=== PATIENT | female | born 1970 | race Caucasian/White ===

== ENCOUNTER → 2019-02-27 | Outpatient (CLI) | payer OTHER ==
--- NOTE | 2019-02-27 15:14 | RAD ---
EXAM: Standing AP knees bilaterally DATE: 02/27/2019 INDICATIONS: DJD, bilateral knee pain COMPARISON: No prior FINDINGS/ IMPRESSION: Standing AP view of the right knee shows severe osteoarthritis with eccentric joint space narrowing and marginal proliferative changes, medial compartment predominance. Mild varus angulation. Negative acute fracture. Standing AP view of the left knee shows severe osteoarthritis with eccentric joint space narrowing and marginal proliferative changes, medial compartment predominance. Mild varus angulation. Negative acute fracture. Electronically signed by: Jeremy Bonilla MD (02/27/2019 3:11 PM) [id number]
== END | disposition home or self-care (01) ==
LOC: RAD 09:59
PROVIDERS: ATTEND Physical Medicine & Rehabilitation
DX: M17.0 Bilateral primary osteoarthritis of knee (principal)
CPT/HCPCS: 73565

== ENCOUNTER → 2019-04-04 | Outpatient (CLI) | payer OTHER ==
--- NOTE | 2019-04-04 12:09 | RAD ---
Examination: MRI of the left knee without contrast HISTORY: History of chronic knee pain COMPARISON: None available Technique: Multiplanar, multisequence MR imaging of the left knee was performed without contrast FINDINGS: The anterior cruciate ligament, posterior cruciate ligament appear intact. There is tear of the body and posterior horn of the medial meniscus with extrusion of the medial meniscus medially. The lateral meniscus appears intact. The medial collateral ligament is intact. Lateral collateral ligamentous complex including the fibular collateral ligament, biceps femoris tendon, popliteus tendon appear intact. Moderate knee joint effusion with multiple hypointensities within likely fat or loose bodies. The extensor mechanism appears intact. Moderate to severe joint space loss identified in the medial compartment. Moderate joint space loss identified in the lateral, patellofemoral compartments. There is complete cartilage loss identified in the weightbearing portion medial compartment. There is deep fissuring of cartilage identified in the lateral, patellofemoral compartments. The medial, lateral retinaculum appear intact. Moderate size osteophyte formation identified in the medial, lateral, patellofemoral compartments. IMPRESSION: 1. Tear of the medial meniscus with extrusion of the medial meniscus medially. 2. Tricompartmental degenerative changes most severe in the medial compartment.. Complete cartilage loss identified in the medial compartment. Grade II chondromalacia lateral, patellofemoral compartments. 3. Moderate knee joint effusion with multiple hypointensities within likely fat or loose bodies. Electronically signed by: Norman Linares MD (04/04/2019 12:06 PM) [id number]
== END | disposition home or self-care (01) ==
LOC: MRI 10:11
PROVIDERS: ATTEND Physical Medicine & Rehabilitation
DX: S83.242A Other tear of medial meniscus, current injury, left knee, initial encounter (principal); M25.462 Effusion, left knee; M25.762 Osteophyte, left knee; M94.262 Chondromalacia, left knee; G89.29 Other chronic pain; X58.XXXA Exposure to other specified factors, initial encounter; Y93.89 Activity, other specified; Y92.89 Other specified places as the place of occurrence of the external cause; Y99.8 Other external cause status
CPT/HCPCS: 73721